=== PATIENT | female | born 1975 | race Caucasian/White ===

== ENCOUNTER 2018-04-06 12:02 | Emergency (ER) | payer OTHER ==
[~2018-04-06] VITALS: Ht 160 cm; Wt 84.8 kg
[~2018-04-06 12:02] MED LIST: AMITRIPTYLINE H50 MG PO; AMLODIPINE BESY10 MG PO; BENICAR HCT 401 EAC1 PO; BYSTOLIC10 MG PO; Flexeril PO; HTN MED; Hydrodiuril,Oretic,E PO; LABETALOL HCL200 MG PO; LOPRESSOR50 MG PO; NEURONTIN100 MG PO; NEXIUM40 MG PO; NORVASC10 MG PO; ORTHO CYCLEN1 TABLET PO; Relafen PO; TOPIRAMATE25 MG PO; Tylenol Extra Streng PO; Tylenol/Codeine #3 PO; ULTRAM50 MG PO; Vicodin,Lortab 5/500 PO; ZESTORETIC 20-1 EAC1 PO
[2018-04-06 15:10] LABS: APPEARANCE CLEAR ((CLEAR)); BILIRUBIN NEGATIVE; BLOOD NEGATIVE; COLOR YELLOW ((YELLOW)); GLUCOSE (STRIP) NEGATIVE; KETONES NEGATIVE; LEUKOCYTES NEGATIVE; NITRITE NEGATIVE; PROTEIN (STRIP) NEGATIVE; SPECIFIC GRAVITY 1.018 (1.000-1.030); UROBILINOGEN 0.2 MG/DL (0.2-1.0)
[2018-04-06 15:17] LABS: HEMATOCRIT 39.4 % (36.0-46.0); MCV 87.8 FL (83-99); PLATELET COUNT 240 K/uL (156-360); RBC DIS.WIDTH-CV 15.5 % (11.8-14.6); RBC DIS.WIDTH-SD 49.2 % (39-53); RED BLOOD COUNT 4.49 M/uL (3.80-5.20); WHITE BLOOD COUNT 5.7 K/uL (4.1-10.2)
[2018-04-06 15:21] LABS: INTER. NORMALIZED RATIO 1.1
[2018-04-06 15:24] LABS: PTT 29.8 SEC (25-37)
[2018-04-06 15:25] LABS: CHLORIDE 107 mEq/L (99-109); POTASSIUM 4.1 mEq/L (3.7-5.4); SODIUM 140 mEq/L (136-147)
[2018-04-06 15:27] LABS: GLUCOSE 93 mg/dL (70-99)
[2018-04-06 15:31] LABS: CREATININE 0.8 mg/dL (0.6-1.3); GFR ESTIMATE (CALCULATED) > 59 mL/min/
[2018-04-06 15:32] LABS: UREA NITROGEN (BUN) 10 mg/dL (9-23)
[2018-04-06 15:44] LABS: QUANTITATIVE HCG < 4.0 MIU/ML
[2018-04-06 16:09] VITALS: BP 153/88
== END 2018-04-06 16:09 | disposition home or self-care (01) ==
LOC: EME 12:02
PROVIDERS: Nurse Practitioner Family
DX: S20.01XA Contusion of right breast, initial encounter (principal); S30.1XXA Contusion of abdominal wall, initial encounter; S50.12XA Contusion of left forearm, initial encounter; S50.11XA Contusion of right forearm, initial encounter; S80.12XA Contusion of left lower leg, initial encounter; S80.11XA Contusion of right lower leg, initial encounter; R79.1 Abnormal coagulation profile; Z95.2 Presence of prosthetic heart valve; Z79.01 Long term (current) use of anticoagulants; F32.9 Major depressive disorder, single episode, unspecified; H91.90 Unspecified hearing loss, unspecified ear; F41.9 Anxiety disorder, unspecified; I10 Essential (primary) hypertension; F17.200 Nicotine dependence, unspecified, uncomplicated; Z87.440 Personal history of urinary (tract) infections
CPT/HCPCS: 70450; 80048; 81003; 84702; 85027; 85610; 85730; 99281; 99284